=== PATIENT | male | born 1980 | race Caucasian/White ===

== ENCOUNTER 2023-05-09 09:04 | Emergency (ER) | payer SELFPAY ==
[2023-05-09 09:20] VITALS: TEMP 98.2; BMI 25.7
[2023-05-09] MEDS ORDERED: ACETAMINOPHEN 500 MG TABLET (FP) PO ONE (10:00)
[2023-05-09] MEDS ORDERED: LIDOCAINE 4% PATCH TP ONE ×2 (10:00→10:16)
[2023-05-09] MEDS ORDERED: LIDOCAINE 5% TOPICAL PATCH TP ONE (10:00)
[2023-05-09] MEDS ORDERED: KETOROLAC TROMETHAMINE 30 MG/1 ML VIAL IM ONE (10:00)
[2023-05-09] MEDS ORDERED: METHOCARBAMOL 500 MG TABLET PO ONE (10:00)
[2023-05-09] MEDS ORDERED: diazePAM 2 MG TABLET PO ONE ×2 (11:30→12:36)
[2023-05-09] MEDS ORDERED: diazePAM 2 MG TABLET ONE ×2 (11:43→13:11)
[2023-05-09] MEDS ORDERED: METOPROLOL TARTRATE 5 MG/5 ML VIAL ONE (13:57)
[2023-05-09 14:41] VITALS: BP 124/82; PULSE 72; RESP 18
[2023-05-09] MEDS ORDERED: LIDOCAINE PATCH REMOVAL MC SCH (22:00)
== END 2023-05-09 14:41 | disposition home or self-care (01) ==
LOC: JER 09:04
PROC: 3E0233Z Introduction of Anti-inflammatory into Muscle, Percutaneous Approach (ICD-10-PCS; principal; 2023-05-09)
DX: M54.50 Low back pain, unspecified (principal); S39.012A Strain of muscle, fascia and tendon of lower back, initial encounter; X58.XXXA Exposure to other specified factors, initial encounter
CPT/HCPCS: 99284-25